=== PATIENT | male | born 2000 | race Caucasian/White ===

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

== ENCOUNTER 2023-04-05 01:41 | Emergency (ER) | payer SELFPAY ==
[~2023-04-05] VITALS: Ht 180.3 cm; Wt 204.1 kg
[~2023-04-05 01:41] MED LIST changes: +ACHD5005 PO; +DOXY100T2 PO; +ONDA4TAB11 PO; -SULF1TAB35 PO; +SULF1TAB38 PO
[2023-04-05 01:47] VITALS: BP 184/105
[2023-04-05] MEDS ORDERED: NF-CIPDEC OT (02:04)
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
== END 2023-04-05 02:08 | disposition home or self-care (01) ==
LOC: EDUNIT# 01:41 → ER 01:44
DX: H60.93 Unspecified otitis externa, bilateral (principal); Z88.0 Allergy status to penicillin
CPT/HCPCS: 99282